=== PATIENT | male | born 1985 | race African-American/Black ===

== ENCOUNTER 2018-11-15 09:11 | Emergency (ER) | payer SELFPAY ==
[~2018-11-15] VITALS: Ht 182.9 cm; Wt 108.9 kg
[2018-11-15 09:19] VITALS: BP 125/77
== END 2018-11-15 10:31 | disposition home or self-care (01) ==
LOC: ER 09:14
DX: R56.9 Unspecified convulsions (principal); Z76.0 Encounter for issue of repeat prescription

== ENCOUNTER 2018-12-23 09:28 | Emergency (ER) | payer BC, OTHER ==
[~2018-12-23] VITALS: Ht 182.9 cm; Wt 108.9 kg
[2018-12-23 09:41] VITALS: BP 107/63
== END 2018-12-23 10:19 | disposition home or self-care (01) ==
LOC: ER 09:28
DX: G40.909 Epilepsy, unspecified, not intractable, without status epilepticus (principal); Z76.0 Encounter for issue of repeat prescription

== ENCOUNTER 2019-02-21 09:17 | Emergency (ER) | payer SELFPAY ==
[~2019-02-21] VITALS: Ht 182.9 cm; Wt 99.8 kg
[2019-02-21 09:30] VITALS: BP 134/87
== END 2019-02-21 11:08 | disposition home or self-care (01) ==
LOC: ER 09:21
DX: R56.9 Unspecified convulsions (principal); Z76.0 Encounter for issue of repeat prescription